=== PATIENT | male | born 1985 | race Two or more races ===

== ENCOUNTER 2018-01-22 05:05 | Emergency (ER) | payer SELFPAY ==
[~2018-01-22] VITALS: Ht 172.7 cm; Wt 74.8 kg
[2018-01-22] MEDS ORDERED: SODIUM CHLORIDE 0.9% 2,000 ML IV ONE (06:45)
[2018-01-22] MEDS ORDERED: LORazepam 0.5 MG TAB PO ONE (08:30)
[2018-01-22 09:19] VITALS: BP 135/85
== END 2018-01-22 09:21 | disposition home or self-care (01) ==
LOC: EDBD 05:05 → ER 05:10
DX: F41.9 Anxiety disorder, unspecified (principal)